=== PATIENT | female | born 2000 | race Caucasian/White ===

== ENCOUNTER 2021-04-30 16:51 | Emergency (ER) | payer BC ==
[~2021-04-30 16:51] MED LIST: IBUPROFEN600 MG PO
[2021-04-30 18:49] LABS: HEMOGLOBIN 14.6 gm/dl (12.3-15.3); RED BLOOD COUNT 4.62 M/UL (4.00-5.10)
[2021-04-30 20:15] LABS: BUN/CREATININE RATIO 13 (0-10)
[2021-04-30] MEDS ORDERED: KEPPRA500 MG PO (20:40)
== END 2021-04-30 20:55 | disposition home or self-care (01) ==
LOC: ER1 16:51
PROVIDERS: Physician Assistant; Physician Assistant Medical
DX: R56.9 Unspecified convulsions (principal); S09.90XA Unspecified injury of head, initial encounter; S40.012A Contusion of left shoulder, initial encounter; S20.219A Contusion of unspecified front wall of thorax, initial encounter; S20.222A Contusion of left back wall of thorax, initial encounter; F17.290 Nicotine dependence, other tobacco product, uncomplicated; W22.8XXA Striking against or struck by other objects, initial encounter
CPT/HCPCS: 70450; 71045; 72125; 73030; 80053; 80307; 81001; 82550; 82553; 83605; 83874; 84484; 84702; 85025; 93005; 96374; 99285; G0480; J2405

== ENCOUNTER → 2021-05-15 | Outpatient (CLI) | payer BC ==
[~2021-05-15] MED LIST changes: +KEPPRA500 MG PO
== END ==
LOC: KOH-I 09:58
DX: R56.9 Unspecified convulsions (principal)
CPT/HCPCS: 70551